=== PATIENT | female | born 1940 | race Caucasian/White ===

== ENCOUNTER → 2017-09-27 15:24 | Outpatient (CLI) | payer MEDICARE, SELFPAY ==
[2017-09-27 15:56] LABS: Basophils % 0.6 % (0.1-2.0); Eosinophils # 0.2 K/mm3 (0.0-0.4); Eosinophils % 2.9 % (0.1-12.0); Hematocrit 47.2 % (37.0-47.0); Hemoglobin 14.8 g/dL (12.2-16.2); Lymphocytes # 2.8 K/mm3 (0.7-4.5); Lymphocytes % 36.8 K/mm3 (10-50); Mean Corpuscular HGB Conc 31.3 g/dL (31.8-35.4); Mean Corpuscular Hemoglobin 28.4 pg (27.0-31.2); Mean Corpuscular Volume 90.7 fl (81-99); Mean Platelet Volume 7.7 fl (7.4-10.4); Monocytes # 0.4 K/mm3 (0.1-1.0); Monocytes % 5.4 % (1.7-9.3); Neutrophils # 4.2 K/mm3 (1.8-7.8); Neutrophils % 54.4 % (37.0-80.0); Platelet Count 217 K/mm3 (142-424); Red Cell Distribution Width 13.4 % (11.5-17.5); White Blood Count 7.7 K/mm3 (4.8-10.8)
[2017-09-27 16:30] LABS: Alanine Aminotransferase 59 U/L (12-78); Albumin Level 3.7 gm/dL (3.4-5.0); Albumin/Globulin Ratio 1.1 (1.1-1.8); Alkaline Phosphatase 78 U/L (46-116); Anion Gap 13.4 mEq/L (5-15); Aspartate Amino Transferase 45 U/L (15-37); Bilirubin,Total 0.3 mg/dL (0.2-1.0); Blood Urea Nitrogen 13 mg/dL (7-18); Calcium 9.9 mg/dL (8.5-10.1); Carbon Dioxide 31 mmol/L (21.0-32.0); Chloride 105 mmol/L (98-107); Creatinine,Serum 0.68 mg/dL (0.55-1.02); Estimated Glomerular Filt Rate 85 ml/min (>60); Free T4 (Free Thyroxine) 0.83 ng/dl (0.76-1.46); GFR (African American) 102 ML/MIN (>60); Globulin 3.4 gm/dl (1.3-3.2); Glucose 214 mg/dL (74-106); Potassium 4.4 mmoL/L (3.5-5.1); Sodium 145 mmol/L (136-145); Total Protein,Serum 7.1 gm/dL (6.4-8.2)
[2017-09-29 05:19] LABS: Thyroid Peroxidase Antibodies 8 IU/mL (0-34)
[2017-09-29 19:08] LABS: Triiodothyronine (T3) Free 2.2 pg/mL (2.0-4.4)
[2017-12-21 19:59] LABS: Thyroid Stimulating Immunoglob <0.10
== END ==
PROVIDERS: PCP Family Medicine; Visit Provider Otolaryngology
DX: R53.82 Chronic fatigue, unspecified (principal); J32.9 Chronic sinusitis, unspecified; J44.1 Chronic obstructive pulmonary disease with (acute) exacerbation; E07.9 Disorder of thyroid, unspecified; R06.02 Shortness of breath; J35.8 Other chronic diseases of tonsils and adenoids; E05.00 Thyrotoxicosis with diffuse goiter without thyrotoxic crisis or storm
CPT/HCPCS: 36415; 80053; 83520; 84439; 84481; 85025; 86376

== ENCOUNTER → 2017-10-10 12:30 | Outpatient (CLI) | payer MEDICARE, SELFPAY ==
--- NOTE | 2017-10-10 12:33 | XR_ITS ---
XR chest 2V HISTORY: Shortness of air with cough and COPD ITS.REASON: thyroid ORDERING PHYSICIAN: Grady Giraldo MD PATIENT AGE: 76 years COMPARISON: 12/17/1949 FINDINGS: The cardiomediastinal silhouette and pulmonary vascularity are within normal limits. No lobar consolidation or collapse. There are chronic changes in the left lower lobe. There is mild kyphosis of the thoracic spine with mild wedging of mid dorsal vertebral bodies. Not significant change. IMPRESSION: No change with no acute finding
--- NOTE | 2017-10-10 12:33 | US_ITS ---
US thyroid HISTORY: History of thyroid disease with prior thyroid treatments, weight gain, thyroid nodules ITS.REASON: thyroid ORDERING PHYSICIAN: Grady Giraldo MD PATIENT AGE: 76 years COMPARISON: None FINDINGS: Right lobe: Right lobe is 2.8 x 1.1 x 1.4 cm. 14 mm mixed nodule in the mid polar region with some increased echogenicity centrally and decreased echogenicity peripherally 8 mm hypoechoic nodule inferiorly Left lobe: 4.6 x 2.4 x 2.9 cm. 2.3x1.9 cm hypoechoic nodule mid aspect left lobe with mixed echogenicity. There may be some peripheral calcification. 1.5 cm isoechoic solid-appearing nodule lower pole Isthmus: Unremarkable IMPRESSION: Bilateral thyroid nodules. The largest nodule is in in the mid pole region of the left lobe at 2.3 x 1.9 cm with some peripheral calcification intermediate suspicion for malignancy.
== END ==
PROVIDERS: Family Provider Family Medicine; PCP Family Medicine; Visit Provider Otolaryngology
DX: J32.9 Chronic sinusitis, unspecified (principal); J44.1 Chronic obstructive pulmonary disease with (acute) exacerbation; R53.82 Chronic fatigue, unspecified; E07.9 Disorder of thyroid, unspecified; R06.02 Shortness of breath; J35.8 Other chronic diseases of tonsils and adenoids; E05.00 Thyrotoxicosis with diffuse goiter without thyrotoxic crisis or storm
CPT/HCPCS: 71046; 76536

== ENCOUNTER → 2017-10-15 13:56 | Outpatient (CLI) | payer MEDICARE, SELFPAY ==
[2017-10-15 14:31] LABS: Blood Urea Nitrogen 17 mg/dL (7-18); Creatinine,Serum 0.82 mg/dL (0.55-1.02); Estimated Glomerular Filt Rate 68 ml/min (>60); GFR (African American) 82 ML/MIN (>60)
== END ==
PROVIDERS: Visit Provider Otolaryngology
DX: E04.1 Nontoxic single thyroid nodule (principal); J39.8 Other specified diseases of upper respiratory tract
CPT/HCPCS: 36415; 82565; 84520

== ENCOUNTER → 2017-10-22 09:33 | Outpatient (CLI) | payer MEDICARE, SELFPAY ==
--- NOTE | 2017-10-22 09:35 | US_ITS ---
FNA w guidance, US organ site (thyroid), HISTORY: Abdominal left thyroid nodule ITS.REASON: thyroid nodule- dom left ORDERING PHYSICIAN: Grady Giraldo MD PATIENT AGE: 76 years COMPARISON: None Prebiopsy thyroid ultrasound: Prebiopsy exam performed to confirm presence of the nodule in the left lobe of the thyroid gland with partially calcified rim TECHNIQUE: Following obtaining informed consent, using aseptic technique and local anesthesia with buffered lidocaine, fine-needle aspiration was performed of the nodule of interest using sonographic guidance. 3 passes were made into the nodule with a 25-gauge needle. Injury into the nodule is somewhat difficult due to the calcified rim. Specimen was given to cytology. The patient tolerated the procedure well without evidence of immediate complications and left the ultrasound suite in stable condition. CYTOLOGY:Pending IMPRESSION: Uneventful ultrasound-guided fine-needle aspiration of the left thyroid nodule
== END ==
PROVIDERS: Family Provider Family Medicine; PCP Family Medicine; Visit Provider Otolaryngology
DX: E04.1 Nontoxic single thyroid nodule (principal); J39.8 Other specified diseases of upper respiratory tract
CPT/HCPCS: 10022; 76536; 88173; 88305

== ENCOUNTER → 2017-10-23 14:09 | Outpatient (CLI) | payer MEDICARE, SELFPAY ==
--- NOTE | 2017-10-23 14:13 | CT_ITS ---
CT soft tissue neck w con INDICATION: Left thyroid nodule with tracheal displacement ORDERING PHYSICIAN: Grady Giraldo MD PATIENT AGE: 76 years COMPARISON: Ultrasound of 10/10/2017 TECHNIQUE: Axial images are obtained with contrast. Sagittal and coronal reformatted images are reviewed as well. FINDINGS: The nasopharynx, oropharynx, and hypopharynx and larynx have an unremarkable appearance. Unremarkable appearing epiglottis. The salivary glands are unremarkable. There is a partially calcified nodule involving the mid to lower pole the left lobe of the thyroid gland measuring 2.9 x 1.6 x 2 cm cephalad to caudad, transverse, and AP respectively. The trachea is slightly deviated toward the right x 2-3 mm. Trachea is not compressed significantly. The esophagus is midline. No adenopathy evident within the neck. There is some calcification in the right lobe of the thyroid gland inferiorly and posteriorly. Upper thoracic images show mild centrilobular emphysematous change. There is a partially calcified region within the proximal aspect of the left internal carotid. While this may represent a looping vessel with calcific plaque, one cannot exclude the possibility of an aneurysm. This measures approximately 9 mm. IMPRESSION: 1. 2.9 x 2 cm partially calcified left thyroid nodule along the mid lower pole of the left lobe of the thyroid gland. 2. Mild tracheal deviation to the right of 2 to 3 mm in esophagus. 3. 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 CT angiogram of the neck may be of further value if clinically warranted
== END ==
PROVIDERS: Family Provider Family Medicine; PCP Family Medicine; Visit Provider Otolaryngology
DX: E04.1 Nontoxic single thyroid nodule (principal); J39.8 Other specified diseases of upper respiratory tract
CPT/HCPCS: 70491; Q9967

== ENCOUNTER → 2017-10-30 11:32 | Outpatient (CLI) | payer MEDICARE, SELFPAY ==
[2017-10-30 11:40] LABS: Microscopic, Urine URINE MICROSCOPIC (MICROSCOPIC)
[2017-10-30 12:04] LABS: Appearance,Urine CLEAR (Clear); Bilirubin,Urine Negative (Negative); Blood, Urine Negative (Negative); Color,Urine YELLOW (Yellow); Glucose,Urine (UA) Negative (Negative); Ketones,Urine Negative (Negative); Leukocyte Esterase,Urine TRACE (Negative); Nitrate,Urine POSITIVE (Negative); PH,Urine 5.5 (5.0-8.5); Protein,Urine Negative (Negative); Specific Gravity, Urine 1.025 (1.005-1.030); Urobilinogen,Urine 0.2 EU/dl (0.2)
[2017-10-30 12:16] LABS: Bacteria,Urine 1+ /lpf; RBC,Urine Occasional #/hpf (0-3)
[2017-10-30 12:21] LABS: Activated Partial Thrombo Time 24.5 seconds (23.6-34.0); Alanine Aminotransferase 63 U/L (12-78); Albumin Level 3.5 gm/dL (3.4-5.0); Alkaline Phosphatase 89 U/L (46-116); Anion Gap 13.4 mEq/L (5-15); Aspartate Amino Transferase 32 U/L (15-37); Bilirubin,Total 0.5 mg/dL (0.2-1.0); Blood Urea Nitrogen 13 mg/dL (7-18); Calcium 9.1 mg/dL (8.5-10.1); Carbon Dioxide 29 mmol/L (21.0-32.0); Chloride 102 mmol/L (98-107); Estimated Glomerular Filt Rate 70 ml/min (>60); GFR (African American) 85 ML/MIN (>60); Globulin 3.6 gm/dl (1.3-3.2); Glucose 255 mg/dL (74-106); INR 1.05 (0.9-1.1); Potassium 4.4 mmoL/L (3.5-5.1); Prothrombin Time 11.4 seconds (9.4-11.8); Sodium 140 mmol/L (136-145); Total Protein,Serum 7.1 gm/dL (6.4-8.2)
[2017-10-30 13:06] LABS: Basophils % 0.4 % (0.1-2.0); Eosinophils # 0.2 K/mm3 (0.0-0.4); Eosinophils % 3.5 % (0.1-12.0); Hematocrit 47.8 % (37.0-47.0); Hemoglobin 15.1 g/dL (12.2-16.2); Lymphocytes # 2.2 K/mm3 (0.7-4.5); Lymphocytes % 34.5 K/mm3 (10-50); Mean Corpuscular HGB Conc 31.7 g/dL (31.8-35.4); Mean Corpuscular Hemoglobin 29.5 pg (27.0-31.2); Mean Corpuscular Volume 93.3 fl (81-99); Mean Platelet Volume 8.9 fl (7.4-10.4); Monocytes # 0.4 K/mm3 (0.1-1.0); Monocytes % 6.2 % (1.7-9.3); Neutrophils # 3.5 K/mm3 (1.8-7.8); Neutrophils % 55.2 % (37.0-80.0); Platelet Count 218 K/mm3 (142-424); Red Blood Count 5.12 M/mm3 (4.20-5.40); Red Cell Distribution Width 13.3 % (11.5-17.5); White Blood Count 6.3 K/mm3 (4.8-10.8)
== END ==
PROVIDERS: Visit Provider Otolaryngology
DX: Z01.818 Encounter for other preprocedural examination (principal); E04.1 Nontoxic single thyroid nodule; E11.9 Type 2 diabetes mellitus without complications; J44.9 Chronic obstructive pulmonary disease, unspecified
CPT/HCPCS: 36415; 80053; 81001; 85025; 85610; 85730; 93005

== ENCOUNTER → 2017-12-10 12:14 | Outpatient (CLI) | payer MEDICARE, SELFPAY ==
[2017-12-10 13:12] LABS: Free T4 (Free Thyroxine) 1.07 ng/dl (0.76-1.46)
[2017-12-14 12:34] LABS: Calcitonin <2.0 pg/mL (0.0-5.0)
== END ==
PROVIDERS: Visit Provider Otolaryngology
DX: E03.9 Hypothyroidism, unspecified (principal)
CPT/HCPCS: 36415; 82308; 84439; 84443

== ENCOUNTER → 2018-03-11 14:21 | Outpatient (CLI) | payer MEDICARE, SELFPAY ==
[2018-03-11 14:51] LABS: Free T4 (Free Thyroxine) 1.25 ng/dl (0.76-1.46); Thyroid Stimulating Hormone 1.73 uIU/ml (0.358-3.740)
== END ==
PROVIDERS: Family Provider Family Medicine; PCP Family Medicine; Visit Provider Otolaryngology
DX: E07.9 Disorder of thyroid, unspecified (principal)
CPT/HCPCS: 36415; 84439; 84443

== ENCOUNTER → 2018-05-27 15:01 | Outpatient (POV) | payer MEDICARE, SELFPAY | PROVIDERS: Visit Provider Nurse Practitioner Acute Care | DX: Z00.00 Encounter for general adult medical examination without abnormal findings (principal) ==

== ENCOUNTER → 2018-09-02 10:27 | Outpatient (CLI) | payer MEDICARE, SELFPAY ==
[2018-09-02 12:00] LABS: Free T4 (Free Thyroxine) 1.18 ng/dl (0.76-1.46); Thyroid Stimulating Hormone 2.49 uIU/ml (0.358-3.740)
== END ==
PROVIDERS: Visit Provider Otolaryngology
DX: E03.9 Hypothyroidism, unspecified (principal)
CPT/HCPCS: 36415; 84439; 84443

== ENCOUNTER → 2019-09-01 13:55 | Outpatient (CLI) | payer MEDICARE, SELFPAY ==
[2019-09-01 15:08] LABS: Calcium 9.7 mg/dL (8.5-10.1); Free T4 (Free Thyroxine) 1.44 ng/dl (0.76-1.46); Thyroid Stimulating Hormone 2.19 uIU/ml (0.358-3.740)
[2019-09-03 07:40] LABS: Thyroid Peroxidase Antibodies <6 IU/mL (0-34)
== END ==
PROVIDERS: Visit Provider Otolaryngology
DX: E07.9 Disorder of thyroid, unspecified (principal); Z90.09 Acquired absence of other part of head and neck
CPT/HCPCS: 36415; 82310; 84439; 84443; 86376

== ENCOUNTER → 2020-03-01 12:19 | Outpatient (CLI) | payer MEDICARE, SELFPAY ==
[2020-03-01 13:59] LABS: Free T4 (Free Thyroxine) 1.25 ng/dl (0.78-2.19)
[2020-03-01 14:14] LABS: Thyroid Stimulating Hormone 0.52 uIU/mL (0.465-4.68)
[2020-03-02 05:27] LABS: Thyroid Peroxidase Antibodies <9 IU/mL (0-34)
[2020-03-02 06:38] LABS: Triiodothyronine (T3) Free 2.3 pg/mL (2.0-4.4)
[2020-03-03 11:16] LABS: Thyroid Stimulating Immunoglob <0.10 IU/L (0.00-0.55)
== END ==
PROVIDERS: Visit Provider Otolaryngology
DX: E07.9 Disorder of thyroid, unspecified (principal)
CPT/HCPCS: 36415; 84439; 84443; 84445; 84481; 86376

== ENCOUNTER → 2020-09-09 13:59 | Outpatient (CLI) | payer MEDICARE, SELFPAY ==
--- NOTE | 2020-09-09 14:00 | US_ITS ---
PROCEDURE: US THYROID CLINICAL INDICATION: hx thyroid neoplasm F/u Hx of lt lobe rem COMPARISON: US THY US thyroid from 10/10/2017 FINDINGS: Right lobe: 1.4cm x 3.1cm x 0.9cm Left lobe: Prior left thyroidectomy Isthmus: Unremarkable Additional findings: No change in the complex mostly hyperechoic nodule in the mid polar region on the right measuring 10 x 9 mm with some coarse calcification. IMPRESSION: Prior left thyroidectomy. Overall no change in the complex right thyroid nodule stable since 10/10/2017 Dictated by: Juvencio Montalvo MD 09/10/2020 08:57 Juvencio Montalvo MD in [place] 09/10/2020 08:58
== END ==
PROVIDERS: PCP Family Medicine; Visit Provider Otolaryngology
DX: E03.9 Hypothyroidism, unspecified (principal)
CPT/HCPCS: 76536

== ENCOUNTER → 2020-09-14 08:44 | Outpatient (CLI) | payer MEDICARE, SELFPAY ==
[2020-09-15 15:43] LABS: Thyroid Peroxidase Antibodies <9 IU/mL (0-34)
[2020-09-16 08:49] LABS: Thyroid Stimulating Immunoglob <0.10 IU/L (0.00-0.55)
== END ==
PROVIDERS: PCP Family Medicine; Visit Provider Otolaryngology
DX: E07.9 Disorder of thyroid, unspecified (principal)
CPT/HCPCS: 36415; 84439; 84443; 84445; 86376

== ENCOUNTER → 2020-12-01 18:25 | Outpatient (CLI) | payer MEDICARE, SELFPAY ==
[2020-12-01 19:48] LABS: Thyroid Stimulating Hormone 1.32 uIU/mL (0.465-4.68)
== END ==
PROVIDERS: Visit Provider Otolaryngology
DX: E03.9 Hypothyroidism, unspecified (principal)
CPT/HCPCS: 36415; 84439; 84443

== ENCOUNTER → 2021-03-03 13:02 | Outpatient (CLI) | payer MEDICARE, SELFPAY ==
--- NOTE | 2021-03-03 13:20 | US_ITS ---
PROCEDURE: US THYROID CLINICAL INDICATION: goiter COMPARISON: US THY US thyroid from 10/10/2017 US US THYROID from 09/09/2020 FINDINGS: Status post left-sided thyroidectomy. The isthmus has an unremarkable appearance at 2 mm. In the upper pole on the right there is a mixed 5 mm nodule unchanged. In the mid polar region there is a 10 x 7 mm slightly hyperechoic nodule with central calcification not significantly changed. There is a prominent peripheral vessel around this nodule. There has been a prior left thyroidectomy. IMPRESSION: No change right thyroid nodules Dictated by: Juvencio Montalvo MD 03/03/2021 16:08 Juvencio Montalvo MD in [place] 03/03/2021 16:08
== END ==
PROVIDERS: PCP Family Medicine; Visit Provider Otolaryngology
DX: E03.9 Hypothyroidism, unspecified (principal)
CPT/HCPCS: 76536

== ENCOUNTER → 2021-03-15 12:19 | Outpatient (CLI) | payer MEDICARE, SELFPAY ==
[2021-03-15 13:30] LABS: Free T4 (Free Thyroxine) 1.08 ng/dl (0.78-2.19)
[2021-03-15 17:02] LABS: Thyroid Stimulating Hormone 7.78 uIU/mL (0.465-4.68)
== END ==
PROVIDERS: Visit Provider Otolaryngology
DX: E03.9 Hypothyroidism, unspecified (principal)
CPT/HCPCS: 84439; 84443

== ENCOUNTER → 2021-04-15 12:36 | Outpatient (CLI) | payer MEDICARE, SELFPAY ==
--- NOTE | 2021-04-15 12:40 | XR_ITS ---
PROCEDURE: XR KNEE RT 3V CLINICAL INDICATION: PAIN IN RT LEG COMPARISON: CR KNEE3L KNEE-3 VIEWS-LT from 05/31/2015 FINDINGS: No fracture or dislocation. No lytic or blastic change. There is normal mineralization. Mild osteoarthritic changes involve all 3 compartments. No acute fracture or dislocation. No lytic or blastic change. Other findings:None. IMPRESSION: Mild osteoarthritis Dictated by: Juvencio Montalvo MD 04/15/2021 13:10 Juvencio Montalvo MD in [place] 04/15/2021 13:10
--- NOTE | 2021-04-15 12:40 | XR_ITS ---
PROCEDURE: XR HIP RT 2-3V W/PELVIS CLINICAL INDICATION: PAIN IN RT LEG COMPARISON: CR HIP2L HIP-2 VIEWS-LT from 05/31/2015 FINDINGS: No acute fracture or dislocation. There are mild osteoarthritic changes of the right hip. No lytic or blastic change. AP view of the pelvis shows multiple surgical coils. A metallic coned shaped density is present in the left pelvic region measuring approximately 2 cm. This could be due to something upon or within the patient. There is mild osteitis pubis and minimal osteoarthritic change of the left hip is well as degenerative changes in the lumbar spine and SI joints IMPRESSION: Osteoarthritis of both hips right slightly greater than left. Mild degenerative/osteoarthritic changes of the SI joints and degenerative changes of the lumbar spine Dictated by: Juvencio Montalvo MD 04/15/2021 13:09 Juvencio Montalvo MD in [place] 04/15/2021 13:09
== END ==
PROVIDERS: PCP Family Medicine; Visit Provider Family Medicine
DX: M79.604 Pain in right leg (principal); M25.551 Pain in right hip; M25.561 Pain in right knee
CPT/HCPCS: 73502; 73562

== ENCOUNTER → 2021-06-06 16:55 | Outpatient (CLI) | payer MEDICARE, SELFPAY | PROVIDERS: Visit Provider Surgery | DX: Z01.812 Encounter for preprocedural laboratory examination (principal); Z11.52 Encounter for screening for COVID-19; Z12.11 Encounter for screening for malignant neoplasm of colon | CPT/HCPCS: C9803; U0003; U0005 ==

== ENCOUNTER 2021-06-08 09:12 | Day surgery (SDC) | payer MEDICARE, SELFPAY ==
[2021-06-06 10:00] VITALS: BMI 42.0
--- NOTE | 2021-06-08 09:34 | HMH.ANESCL ---
[facility] Anesthesia Checklist - Patient Identification Patient Identification: Arm Band - Structural Data Admitted From: Home Planned Operative Procedure/s: Colonoscopy Consent for Planned Operative Procedure(s) Verified: Yes - NPO Status Verified Time NPO: 00:00 - Additional verifications Anesthesia Reactions: No - Airway Assessment C-Spine Mobility Assessed: Yes TMJ Mobility Assessed: Yes Dentition: Poor Dentition - Neurological Assessment Level of Consciousness: Awake Hx Seizures: No Numbness or tingling in extremities: No - Anesthesia Plan Anesthesia Risk discussed: Yes Anesthesia Plan: Verified ASA Class: III Anesthesia Type: MAC [facility] History I have reviewed the patient's past medical history: Yes Medical History: Reports:: Cancer, Chronic Obstructive Pulmonary Disease (COPD), Diabetes Mellitus Type 2, Hypertension Denies:: Diabetes Mellitus Type 1, Internal Pacemaker, Lung Disease, MRSA, Seizures *Have you ever received a pneumonia vaccine?: Yes *Have you received a flu vaccine this season?: Yes Other Medical History: Reports: Hypothyroidism, Other Anesthesia experience/problems:: None Laterality Cases: Bilateral: Tonsillectomy, Total Hip Replacement Other Surgeries: Yes: Appendectomy, Hernia Repair, Thyroidectomy. No: Pacemaker Amputation: No Fractures: No - *Social History Last grade of school completed: Advanced degree Smoking Status: Former smoker Alcohol Intake: never Substance Use Type: denies use *Occupational Status:: disabled Housing: house *Travel in the last 8 weeks: None Family Hx:: Thyroid Disorder
[2021-06-08 10:13] VITALS: BP 129/63; PULSE 79; RESP 18; TEMP 36.5; O2SAT 96
[2021-06-08 10:34] VITALS: O2SAT 96
[2021-06-08 10:34] LABS: POC Glucose,Bedside 196 (70-110)
--- NOTE | 2021-06-08 11:27 | HMH.SCOPE ---
- Procedure: Date: 06/08/21 Patient Date of :: 1940 Procedure Performed:: Total colonoscopy to terminal ileum with polypectomy by biopsy forceps Indications:: 80-year-old female who has undergone several colonoscopies in the past. Most recent colonoscopy was on 06/22/2015 at which time she had a couple of tubular adenomas removed. 5-year follow-up was recommended. Performing Provider:: Kei Medrano MD Referring Provider:: Zak Beatty MD Sedation:: MAC sedation Procedure:: Patient was taken to endoscopy procedure room. She was positioned in lateral decubitus position. Adequate intravenous sedation was achieved with anesthesia titration of propofol. Variable stiffness Olympus colonoscope was inserted via the anus. It was advanced to the cecum with some difficulty due to significant floppiness and redundancy of the colon. Ultimately the ileocecal valve and appendiceal orifice were clearly identified. Colonoscope was advanced into the terminal ileum which appeared grossly normal. It was slowly withdrawn through the colon with careful surveillance. Irrigation and suctioning was performed as needed to allow for adequate visualization as there was some particulate liquid stool within the colon. She had distal sigmoid diverticulosis. In the sigmoid colon there was a tiny diminutive polyp removed with cold biopsy forceps. Rectosigmoid revealed a tiny diminutive polyp removed with cold biopsy forceps. In the rectal region there were several hyperplastic appearing polyps removed with cold biopsy forceps. Retroflexion revealed minor prolapsing nonbleeding internal hemorrhoids. Colonoscope was withdrawn. Findings:: Sigmoid diverticulosis Diminutive polyps as noted above Recommendations:: Follow-up colonoscopy pending pathology results. If no adenomatous component likely would not pursue follow-up colonoscopy. If adenomatous, may need repeat colonoscopy 5 years. Complications:: None immediately apparent Estimated blood obtained (mL): 3
[2021-06-08 11:29] VITALS: BP 138/67; PULSE 74; RESP 16; TEMP 36.4; O2SAT 95
[2021-06-08 11:40] VITALS: BP 105/55; PULSE 91; RESP 18; TEMP 36.4; O2SAT 94
[2021-06-08 11:50] VITALS: BP 115/61; PULSE 72; RESP 18; TEMP 36.3; O2SAT 96
== END 2021-06-08 12:10 | disposition home or self-care (01) ==
LOC: OUTP 09:14
PROVIDERS: PCP Family Medicine; Visit Provider Surgery
PROC: 0DJD8ZZ Inspection of Lower Intestinal Tract, Via Natural or Artificial Opening Endoscopic (ICD-10-PCS; principal; 2021-06-08 10:30)
DX: Z12.11 Encounter for screening for malignant neoplasm of colon (principal); K62.1 Rectal polyp; K57.30 Diverticulosis of large intestine without perforation or abscess without bleeding; K63.5 Polyp of colon; Z86.010 Personal history of colon polyps; Z85.9 Personal history of malignant neoplasm, unspecified; J44.9 Chronic obstructive pulmonary disease, unspecified; E11.9 Type 2 diabetes mellitus without complications; I10 Essential (primary) hypertension; E03.9 Hypothyroidism, unspecified; Z79.84 Long term (current) use of oral hypoglycemic drugs; Z79.899 Other long term (current) drug therapy
CPT/HCPCS: 45380; 82962; 88305; J2704

== ENCOUNTER → 2021-06-30 12:48 | Outpatient (CLI) | payer MEDICARE, SELFPAY ==
--- NOTE | 2021-06-30 12:49 | MR_ITS ---
PROCEDURE: MR LUMBAR SPINE WO CON CLINICAL INDICATION: Radiculopathy, femoral nerve injury Right leg pain with intermittent low back pain COMPARISON: No exams were available for comparison TECHNIQUE: Standard multiplanar multiecho sequences are performed without contrast. 3-D MIP and myelographic images are also rendered and reviewed FINDINGS: There is mild lumbar scoliosis convex left. Spinal cord ends at the L1 level. T11 and T12 shows mild degenerative disc disease. L1-L2: Unremarkable. L2-L3: Degenerative disc disease with circumferential bulging disc and mild facet and ligamentum hypertrophy with mild right lateral recess narrowing and mild bilateral foraminal narrowing. L3-L4: Circumferential bulging disc with facet and ligamentum hypertrophy with right lateral recess narrowing and mild right foraminal narrowing. L4-5: Concentric bulging disc. 3 mm anterolisthesis of L4. Facet and ligamentum hypertrophy. Mild right lateral recess and mild bilateral foraminal narrowing. L5-S1: Facet and ligamentum hypertrophy. No extruded herniated disc, fracture, or bony canal stenosis. IMPRESSION: Multilevel lumbar spondylosis. Please see above for detailed description at each level. No extruded herniated disc. Dictated by: Juvencio Montalvo MD 07/02/2021 08:32 Juvencio Montalvo MD in [place] 07/02/2021 08:32
== END ==
PROVIDERS: PCP Family Medicine; Visit Provider Specialist
DX: M54.9 Dorsalgia, unspecified (principal); M79.604 Pain in right leg
CPT/HCPCS: 72148; 76376

== ENCOUNTER → 2021-08-15 10:51 | Outpatient (POV) | payer MEDICARE, SELFPAY ==
[2021-08-15 11:13] VITALS: BP 168/69; PULSE 91; RESP 18; O2SAT 95; BMI 40.2
--- NOTE | 2021-08-15 11:32 | HMH.PMCON ---
Assessment and Plan (1) Sacroiliitis Status: Acute Category: Medical Code(s): M46.1 - Sacroiliitis, not elsewhere classified - Assessment and plan all Dx Assessment and Plan for all problems:: Patient is tried and failed conservative therapy such as oral medication and physical therapy for greater than 6 weeks. Patient has positive raphael, joel, compression and distraction. We will schedule the patient for a right SI injection. Patient is currently not on any blood thinners. Risk and benefits have been discussed with the patient. Patient would like to proceed with this procedure. Patient has been instructed to contact the clinic with any concerns before the next appointment. This note was dictated using voice recognition software and make contain errors or omissions. HPI - Data of Consult Patient: new to practice Consult date: 08/15/21 Requesting Physician: Dr. Leslie Starr - Consult Narrative Reason for consult: right hip pain History of present illness: Ms. Brooks is a 80 year old female who is here today as a new patient. Patient is referred by Dr. Starr for right hip pain. Patient says that she fell in January 2021 that could have contributed to this right hip pain. She did not seek help until late March because she was trying to see if the pain improves with exercise and movement. After seeing Dr. Starr, she recommended the patient to go to physical therapy. However, she fell two more times on her bottom after that. They did an imaging of her back to see if there's any fractures or reason that could be causing her to fall. Patient's MRI shows multilevel lumbar spondylosis. Today, patient describes the pain that starts in her right low back that stops to her right knee. It's mostly on her groin and right low back. She denies any numbness and paresthesia that goes to her foot. Patient denies any loss of bladder and bowel functions. Dr. Starr thinks that she has some injury to her right femoral nerve. Patient says that she was started on cymbalta but could not tolerate it. She is not on any controlled medications today. Her Leon is [phone]. CC: Sharita Oliveira APRN [facility] History I have reviewed the patient's past medical history: Yes Medical History: Reports:: Cancer, Chronic Obstructive Pulmonary Disease (COPD), Diabetes Mellitus Type 2, Hypertension, Lung Disease Denies:: Diabetes Mellitus Type 1, Internal Pacemaker, MRSA, Seizures *Have you ever received a pneumonia vaccine?: Yes *Have you received a flu vaccine this season?: No Other Medical History: Reports: Hypothyroidism, Other Laterality Cases: Bilateral: Tonsillectomy, Total Hip Replacement Other Surgeries: Yes: Appendectomy, Colonoscopy, Hernia Repair, Thyroidectomy. No: Pacemaker Amputation: No Fractures: No - *Social History Smoking Status: Former smoker Alcohol Intake: never Substance Use Type: denies use *Occupational Status:: unemployed Housing: other Household Members: none *Travel in the last 8 weeks: None Family Hx:: Unable to obtain Review of Systems - Review of Systems General: No recent weight changes, no fever, no sleep disturbances Respiratory: No cough, no shortness of air, no recurring pulmonary infections Cardiovascular/peripheral vascular: No chest pain, no palpitations, no edema, no shortness of breath Gastrointestinal: No new onset incontinence, normal bowel movements reported Genitourinary: No new onset incontinence Musculoskeletal: Right hip pain Psychiatric: [Normal mood/affect] Neurological: [Denies weakness in extremities], [denies balance issues] Meds Home Medications Medication Instructions Recorded Confirmed Type Dapagliflozin Propanediol [Farxiga] 10 mg PO DAILY 06/25/18 07/28/21 History lisinopril 10 mg tablet 10 mg PO DAILY 09/01/19 07/28/21 History metformin 500 mg tablet,extended 500 mg PO BID 09/01/19 07/28/21 History release 24 hr Cholecalciferol (Vitamin D3) 250 mcg PO ALMA
== END ==
PROVIDERS: Visit Provider Family Medicine
DX: M46.1 Sacroiliitis, not elsewhere classified (principal)
CPT/HCPCS: 99202; G0463

== ENCOUNTER 2021-09-02 12:43 | Day surgery (SDC) | payer MEDICARE, SELFPAY ==
[2021-09-02 13:03] VITALS: BP 133/71; PULSE 72; RESP 18; TEMP 36.6; O2SAT 94; BMI 40.2
[2021-09-02 13:25] VITALS: BP 161/79; PULSE 75; RESP 18; O2SAT 94
[2021-09-02 13:27] VITALS: PULSE 74; RESP 18; O2SAT 97
--- NOTE | 2021-09-02 13:30 | HMH.PMPROC ---
- Procedure Date: 09/02/21 Time: 13:30 Anesthesiologist:: Nilsa Bains MD Complications:: None Pre-procedure Diagnosis:: Right sacroiliitis, right-sided low back pain, right-sided hip pain Post-procedure Diagnosis:: Same Indications for Procedure:: Patient is a very pleasant 80-year-old white female who presents today with chronic low back pain and right-sided hip pain related to the above diagnosis. She has tried and failed conservative treatment including oral pain medications and home stretching program for greater than 6 weeks. Patient states that she has fallen a few times which has contributed to worsening pain. The plan for today is for the patient to undergo a right-sided SI joint injection under fluoroscopy #1. Procedure Details:: Right SI joint injection under fluoroscopy Informed consent was obtained and the risks and benefits of the procedure was going to the patient. Patient was taken to the procedure room. Patient was placed prone on the procedure table. The right hip was prepped using ChloraPrep. The skin and subcutaneous tissues were anesthetized using lidocaine. I placed a 22-gauge spinal needle into the inferior aspect of the right SI joint. Needle placement was confirmed with dye. After this we injected 5 mL bupivacaine 0.25% and Depo-Medrol 40 mg into the right SI joint. The patient tolerated the procedure well with no complication. Plan and Disposition:: We will follow-up with this patient in 2 weeks. Will reevaluate pain symptoms at that time.
[2021-09-02 13:40] VITALS: BP 140/72; PULSE 67; RESP 20; O2SAT 94
== END 2021-09-02 13:40 | disposition home or self-care (01) ==
LOC: SC.PAINP 12:44
PROVIDERS: PCP Family Medicine; Visit Provider Anesthesiology Pain Medicine
DX: M46.1 Sacroiliitis, not elsewhere classified (principal); M54.50 Low back pain, unspecified; I10 Essential (primary) hypertension; J44.9 Chronic obstructive pulmonary disease, unspecified; E11.9 Type 2 diabetes mellitus without complications; Z87.891 Personal history of nicotine dependence; M19.90 Unspecified osteoarthritis, unspecified site; E03.9 Hypothyroidism, unspecified; Z90.49 Acquired absence of other specified parts of digestive tract
CPT/HCPCS: 27096; G0260; J1040; Q9966

== ENCOUNTER → 2021-09-13 20:21 | Outpatient (CLI) | payer MEDICARE, SELFPAY | PROVIDERS: PCP Family Medicine; Visit Provider Specialist | DX: G47.33 Obstructive sleep apnea (adult) (pediatric) (principal) | CPT/HCPCS: 95810 ==

== ENCOUNTER → 2021-09-27 10:37 | Outpatient (POV) | payer MEDICARE, SELFPAY ==
[2021-09-27 10:55] VITALS: BP 143/76; PULSE 77; RESP 18; O2SAT 99; BMI 39.6
--- NOTE | 2021-09-27 11:03 | HMH.PAINSOAP ---
[facility] Pain Management SOAP Note Subjective:: Patient is a 80-year-old female who is presenting today for follow-up after a right SI joint injection. She underwent the injection on 09/02/2021. She got 3 days of significant relief at about 70%. Patient's pain has returned. She does use a walker for ambulation. She reports to have had a fall in January 2021. Since then she has had significant pain. She has pain in her right low back area into the right buttock, and right anterior thigh as well as right knee. She says that the injection gave her significant relief, however, she is concerned that her pain may be coming from the hip as well. She does have hip pain with standing and walking. She says that she was told in the past she may need to undergo a right hip replacement. She has not had any significant imaging. She rates her pain a 5 out of 10. Review of Systems General: No recent weight changes, no fever, no sleep disturbances Respiratory: No cough, no shortness of air, no recurring pulmonary infections Cardiovascular/peripheral vascular: No chest pain, no palpitations, no edema, no shortness of breath Gastrointestinal: No new onset incontinence, normal bowel movements reported Genitourinary: No new onset incontinence Musculoskeletal: Right low back pain, right buttock pain, right hip pain, right anterior thigh pain, right knee pain Psychiatric: [Normal mood/affect] Neurological: [Denies weakness in extremities], [denies balance issues] Objective:: Physical exam General: Alert and oriented x3, no acute distress, pleasant and cooperative Lungs: Respirations even and unlabored, symmetrical chest expansion Eyes: PERRL Musculoskeletal: Flexion and extension of right lumbar [spine] somewhat guarded secondary to pain, [antalgic gait noted], positive Girma's test, positive distraction test, positive compression test, positive Aurora's test Neurological: Speech clear, no gross sensory deficit Assessment:: Sacroiliitis right, right hip pain Plan:: We will schedule patient for repeat right SI joint injection. She got 70 to 80% relief for approximately 3 days following the injection. We will also order an MRI of the patient's right hip. She did have a fall and says she has had pain to the right hip since the fall. We will follow up with her after the MRI and after her SI injection. Possible side effects of corticosteroids have been discussed with the patient. Risks and benefits of the procedure have been explained to the patient. Patient would like to proceed with the procedure. Patient has been instructed to contact the clinic with any concerns before the next appointment. Dr. Tidwell has reviewed this note and agrees with this plan of care. This note was dictated using voice recognition software and make contain errors or omissions. [facility] History I have reviewed the patient's past medical history: Yes Medical History: Reports:: Chronic Obstructive Pulmonary Disease (COPD), Diabetes Mellitus Type 2, Hypertension, Lung Disease Denies:: Cancer, Diabetes Mellitus Type 1, Internal Pacemaker, MRSA, Seizures *Have you ever received a pneumonia vaccine?: Yes *Have you received a flu vaccine this season?: No Other Medical History: Reports: Arthritis, Hypothyroidism, Other Laterality Cases: Bilateral: Tonsillectomy, Total Hip Replacement Other Surgeries: Yes: Appendectomy, Colonoscopy, Hernia Repair, Thyroidectomy. No: Pacemaker Amputation: No Fractures: No - *Social History Smoking Status: Former smoker Alcohol Intake: never Substance Use Type: denies use *Occupational Status:: retired Housing: other Household Members: none *Travel in the last 8 weeks: None Family Hx:: Unable to obtain
== END ==
PROVIDERS: Visit Provider Clinical Nurse Specialist Family Health
DX: M46.1 Sacroiliitis, not elsewhere classified (principal); M25.551 Pain in right hip
CPT/HCPCS: 99212; G0463

== ENCOUNTER → 2021-09-29 11:12 | Outpatient (CLI) | payer MEDICARE, SELFPAY ==
--- NOTE | 2021-09-29 11:20 | XR_ITS ---
FINAL REPORT CLINICAL HISTORY: COPD, no chest complaints COMPARISON: October 10, 2017 FINDINGS: Two views of the chest were obtained. The heart size and pulmonary vascularity are within normal limits. The mediastinum is normal. The lungs are hyperinflated consistent with COPD. There is mild scarring or atelectasis in the lung bases. There is no pneumothorax. The bony thorax is intact. IMPRESSION: Mild bibasilar scarring or atelectasis. Reviewed, Interpreted and Dictated by Kei Zaidi III, MD Transcribed by Franklin Mccarty Authenticated by Kei Zaidi III, MD on 09/29/2021 12:36:58 PM [facility]
== END ==
PROVIDERS: PCP Family Medicine; Visit Provider Specialist
DX: J44.9 Chronic obstructive pulmonary disease, unspecified (principal)
CPT/HCPCS: 71046

== ENCOUNTER → 2021-10-03 14:24 | Outpatient (CLI) | payer MEDICARE, SELFPAY ==
--- NOTE | 2021-10-03 14:27 | MR_ITS ---
FINAL REPORT CLINICAL HISTORY: RT HIP PAIN.RT HIP PAIN XMONTHS. NO RECENT INJURY OR TRAUMA. PAIN WHEN GETTING UP OR DOWN. NO PRIOR. FINDINGS: Multiplanar MR imaging of the right hip was performed without contrast. There is no evidence of fracture or dislocation. There is moderate degenerative change of the right hip. There are subchondral cysts in the right superior acetabulum with adjacent bone marrow edema. There is no evidence of avascular necrosis. No labral tear is identified. No significant joint effusion is seen. There is a small partial tear at the insertion of the right gluteus medius. There is mild edema or mild muscle injury of the right adductor musculature. No soft tissue mass or cyst is identified. IMPRESSION: Moderate right hip degenerative change. Small partial tear at the insertion of the right gluteus medius. Mild edema or mild muscle injury of the right adductor musculature. Reviewed, Interpreted and Dictated by Kei Zaidi III, MD Transcribed by Franklin Mccarty Authenticated by Kei Zaidi III, MD on 10/03/2021 04:36:26 PM [facility]
== END ==
PROVIDERS: PCP Family Medicine; Visit Provider Clinical Nurse Specialist Family Health
DX: M25.551 Pain in right hip (principal)
CPT/HCPCS: 73721

== ENCOUNTER 2021-10-14 14:07 | Day surgery (SDC) | payer MEDICARE, SELFPAY ==
[2021-10-14 14:13] VITALS: BP 114/80; PULSE 76; RESP 18; O2SAT 95
[2021-10-14 14:22] VITALS: BP 148/76; PULSE 77; RESP 18; TEMP 36.7; O2SAT 95; BMI 39.6
[2021-10-14 14:39] VITALS: BP 116/80; PULSE 76; RESP 20; O2SAT 95
--- NOTE | 2021-10-14 14:57 | HMH.PMPROC ---
- Procedure Date: 10/14/21 Time: 14:58 Anesthesiologist:: Nilsa Bains MD Complications:: None Pre-procedure Diagnosis:: Right-sided sacroiliitis, right-sided hip pain, chronic low back pain Post-procedure Diagnosis:: Same Indications for Procedure:: Patient is a very pleasant 80-year-old white female who presents today with chronic low back pain and right-sided hip pain related to the above diagnosis. She has tried and failed conservative treatment including oral pain medications and home stretching program for greater than 6 weeks. She has previously undergone a right-sided SI joint injection under fluoroscopy notes 70 to 80% pain relief for unfortunately only 3 days after the injection. She states that she did have a fall and she has been having right hip pain since the fall. We also ordered x-rays of her right hip for further evaluation of her right hip pain after she sustained a fall and imaging demonstrated moderate right hip degenerative changes with a small partial tear at the insertion of the right gluteus medius muscle. There is also mild edema and or mild muscle injury to the right abductor muscle. The plan for today is for the patient to undergo repeat right sided SI joint injection under fluoroscopy. Procedure Details:: Right SI joint injection under fluoroscopy Informed consent was obtained and the risks and benefits of the procedure was going to the patient. Patient was taken to the procedure room. Patient was placed prone on the procedure table. The right hip was prepped using ChloraPrep. The skin and subcutaneous tissues were anesthetized using lidocaine. I placed a 22-gauge spinal needle into the inferior aspect of the right SI joint. Needle placement was confirmed with dye. After this we injected 5 mL bupivacaine 0.25% and Depo-Medrol 40 mg into the right SI joint. The patient tolerated the procedure well with no complication. Plan and Disposition:: I discussed x-ray findings of her right hip with the patient. I also discussed with the patient we can perform an intra-articular right hip injection in the future should she continue to experience right-sided hip/groin pain. We will follow-up with this patient in 2 weeks and reevaluate her chronic pain symptoms.
[2021-10-14 15:00] VITALS: BP 136/94; PULSE 72; RESP 20; O2SAT 94
== END 2021-10-14 15:01 | disposition home or self-care (01) ==
LOC: SC.PAINP 14:08
PROVIDERS: PCP Family Medicine; Visit Provider Anesthesiology Pain Medicine
DX: M46.1 Sacroiliitis, not elsewhere classified (principal); M54.50 Low back pain, unspecified; M25.559 Pain in unspecified hip; G89.29 Other chronic pain; I10 Essential (primary) hypertension; J44.9 Chronic obstructive pulmonary disease, unspecified; E11.9 Type 2 diabetes mellitus without complications; E03.9 Hypothyroidism, unspecified; Z87.891 Personal history of nicotine dependence
CPT/HCPCS: 27096; G0260; J1040; Q9966

== ENCOUNTER → 2021-10-25 10:23 | Outpatient (CLI) | payer MEDICARE, SELFPAY ==
[2021-10-25 11:15] VITALS: PULSE 82; PULSE 84
== END ==
PROVIDERS: PCP Family Medicine; Visit Provider Specialist
DX: J44.9 Chronic obstructive pulmonary disease, unspecified (principal)
CPT/HCPCS: 94060; 94618; 94640; 94727; 94729

== ENCOUNTER → 2022-02-22 09:35 | Outpatient (CLI) | payer MEDICARE, SELFPAY ==
--- NOTE | 2022-02-22 09:37 | XR_ITS ---
FINAL REPORT TECHNIQUE: Bone mineral density was calculated of the lumbar spine, right forearm and left hip. CLINICAL HISTORY: post menopausal FINDINGS: DEXA BONE DENSITY AXIAL SKELETON Using L1-4, the bone mineral density of the spine is 0.809 g/cm2, corresponding to T-score of -2.2. Classified as osteopenia. Using the left hip, the bone mineral density of the femoral neck is 0.809 g/cm2, corresponding to a T-score of -1.1. Classified as osteopenia. Using the right forearm, the bone mineral density of the distal 1/3 is 0.641 g/cm2, corresponding to a T-score of -0.9. Classified as normal. NOTE: T-score: Standard deviation compared with peak bone mass of young adult mean. *Following the recommendations of the International Society of Bone densitometry, classification of hip BMD is based on the lower of two T-scores; total hip or femoral neck. IMPRESSION: Diminished bone mineral density of the lumbar spine and left hip consistent with osteopenia. FRAX 10 year fracture risk is 9.3 % for major osteoporotic fracture. Reviewed, Interpreted and Dictated by Kei Zaidi III, MD Transcribed by Alba Oneill Authenticated and [facility]
== END ==
PROVIDERS: PCP Family Medicine; Visit Provider Nurse Practitioner
DX: Z78.0 Asymptomatic menopausal state (principal)
CPT/HCPCS: 77080

== ENCOUNTER → 2023-03-01 13:44 | Outpatient (CLI) | payer MEDICARE, SELFPAY ==
--- NOTE | 2023-03-01 13:45 | CT_ITS ---
FINAL REPORT CLINICAL HISTORY: reducible umbilical hernia COMPARISON: None FINDINGS: Axial CT images of the abdomen and pelvis were obtained without intravenous contrast. Coronal reformatted images were also obtained.This study was performed with techniques to keep radiation doses as low as reasonably achievable (ALARA). Individualized dose reduction techniques using automated exposure control or adjustment of mA and/or kV according to the patient's size were employed. Abdomen: There is a 6 mm left lower lobe nodule. There is no evidence of renal stone or hydronephrosis. The liver has a mildly lobulated contour which may represent cirrhosis. There are multiple gallstones in the gallbladder. The spleen and pancreas have an unremarkable, unenhanced appearance. No mass or adenopathy is seen. No inflammatory process is identified. Moderate vascular calcifications. There are postoperative changes in the anterior abdominal and pelvic wall. The mesh appears to be intact but with focal bulging of the abdominal wall in this region. Pelvis: The appendix is not identified. There are multiple sigmoid diverticula. Urinary bladder is unremarkable. Right hip arthroplasty is noted. IMPRESSION: 6 mm left lower lobe nodule. Recommend 6 to 12-month follow-up CT chest per Fleischner criteria. Postoperative changes of the anterior abdominal and pelvic wall with intact mesh but with focal bulging of the abdominal wall in this region. Reviewed, Interpreted and Dictated by Kei Zaidi III, MD Transcribed by Marilu Connor Authenticated and [facility]
--- NOTE | 2023-03-01 14:03 | XR_ITS ---
FINAL REPORT CLINICAL HISTORY: left hand/wrist pain after fall FINDINGS: Left hand Three views were obtained. There is no acute fracture or dislocation. There are mild degenerative changes. No soft tissue abnormality is identified. IMPRESSION: No acute process. Reviewed, Interpreted and Dictated by Kei Zaidi III, MD Transcribed by Payal Duong Authenticated and [facility]
--- NOTE | 2023-03-01 14:03 | XR_ITS ---
FINAL REPORT CLINICAL HISTORY: left hand/wrist pain after fall FINDINGS: Left wrist Three views were obtained. There is a nondisplaced fracture at the base of the radial styloid of uncertain age, may be acute or subacute. There is soft tissue calcification adjacent to the triquetrum of uncertain age. There are moderate to severe degenerative changes at the radial aspect of the wrist. IMPRESSION: Nondisplaced radial styloid fracture of uncertain age, may be acute or subacute. Soft tissue calcification adjacent to the triquetrum of uncertain age. Reviewed, Interpreted and Dictated by Kei Zaidi III, MD Transcribed by Payal Duong Authenticated and [facility]
== END ==
PROVIDERS: PCP Nurse Practitioner; Visit Provider Nurse Practitioner
DX: K42.9 Umbilical hernia without obstruction or gangrene (principal); M25.532 Pain in left wrist; M79.642 Pain in left hand; W19.XXXA Unspecified fall, initial encounter; Y92.009 Unspecified place in unspecified non-institutional (private) residence as the place of occurrence of the external cause
CPT/HCPCS: 73100; 73120; 74176

== ENCOUNTER 2023-03-06 13:20 | Outpatient (RCR) | payer MEDICARE, SELFPAY | END 2023-03-06 15:00 | disposition home or self-care (01) | LOC: OT 13:20 | PROVIDERS: Visit Provider Orthopaedic Surgery | DX: S52.515A Nondisplaced fracture of left radial styloid process, initial encounter for closed fracture (principal) | CPT/HCPCS: 97763 ==

== ENCOUNTER 2023-04-26 08:25 | Day surgery (SDC) | payer MEDICARE, SELFPAY ==
[2023-04-25 11:44] VITALS: BMI 40.6
[2023-04-26 08:50] VITALS: BP 143/75; PULSE 80; RESP 18; TEMP 36.2; O2SAT 97
[2023-04-26 09:10] LABS: POC Glucose,Bedside 156 (70-110)
[2023-04-26 09:28] VITALS: O2SAT 95
--- NOTE | 2023-04-26 09:42 | HMH.SCOPE ---
Procedure: Date: 04/26/23 Patient Date of :: 1940 Procedure Performed:: EGD & bougie dilation Indications:: Dysphagia, food sticking Performing Provider:: Kristan Oswald MD Referring Provider:: Carol Oswald APRN Sedation:: Propofol Procedure:: The gastroscope was gently passed through the incisoral orifice into the oral cavity and under direct visualization the esophagus was intubated. The endoscope was passed down the esophagus, through the stomach, and into the duodenum. Color, texture, mucosa, and anatomy of the esophagus, stomach, and duodenum were carefully examined with the scope. 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 Complications:: None Estimated blood obtained (mL): 0 Colonoscopy Component Colonoscopy Component Was a colonoscopy performed during today's procedure?: No
[2023-04-26 09:50] VITALS: BP 139/70; PULSE 100; RESP 18; TEMP 36.6; O2SAT 91
[2023-04-26 10:00] VITALS: BP 166/84; PULSE 98; RESP 18; O2SAT 92
[2023-04-26 10:10] VITALS: BP 147/76; PULSE 96; RESP 17; O2SAT 94
[2023-04-26 10:20] VITALS: BP 144/66; PULSE 89; RESP 17; TEMP 36.6; O2SAT 96
--- NOTE | 2023-04-26 13:18 | EXP.ANES.CKL ---
[facility] Disclaimer: The information contained in this section may have been updated after the patient was seen, as this information can be updated by other users. Medical History Cataract Cataract of right eye Dysphagia Fall at home Umbilical hernia Surgical History Hx of blepharoplasty Hx of hernia repair Family History Other Family history of cancer Family history of diabetes mellitus type II Family history of hypothyroidism Social History Smoking Status: Never smoker alcohol intake: never substance use type: denies use current occupational status: retired Travel in the last 8 weeks: Inside the [place] household members: none housing: other marital status: current occupational exposures/hazards: No caffeine: No [facility] Anesthesia Checklist Patient Identification Patient Identification: Arm Band and Family Structural Data Admitted From: Home Planned Operative Procedure/s: Egd. Esophogeal dilation. Consent for Planned Operative Procedure(s) Verified: Yes Verified Documents: Surgical Consent and History and Physical NPO Status Verified Time NPO: 00:00 Additional verifications Patient : No Anesthesia Reactions: No Hx Blood Transfusions: No Blood Transfusion Reaction: No Cephalosporin Allergy: No Previous Colonoscopy: No Airway Assessment Mallampati Score:: Class II C-Spine Mobility Assessed: Yes TMJ Mobility Assessed: Yes Dentition: Poor Dentition Neurological Assessment Level of Consciousness: Awake, Alert, Appropriate and Follows Commands Hx Seizures: No Numbness or tingling in extremities: No Anesthesia Plan Anesthesia Risk discussed: Yes ASA Class: II Anesthesia Type: MAC
== END 2023-04-26 10:20 | disposition home or self-care (01) ==
PROVIDERS: PCP Nurse Practitioner; Visit Provider Internal Medicine Gastroenterology
PROC: 0DJ08ZZ Inspection of Upper Intestinal Tract, Via Natural or Artificial Opening Endoscopic (ICD-10-PCS; CPT 43235; principal; 2023-04-26 09:30)
DX: K22.2 Esophageal obstruction (principal); E11.9 Type 2 diabetes mellitus without complications
CPT/HCPCS: 43248; 82962

== ENCOUNTER 2023-09-06 19:39 | Outpatient (CLI) | payer MEDICARE, SELFPAY ==
[2023-09-06 19:04] LABS: Basophils % 0.5 % (0.1-2.0); Eosinophils # 0.2 K/mm3 (0.0-0.4); Eosinophils % 2.1 % (0.1-12.0); Hematocrit 46.7 % (37.0-47.0); Hemoglobin 15.3 g/dL (12.2-16.2); Lymphocytes # 2.7 K/mm3 (0.7-4.5); Lymphocytes % 29.5 % (10-50); Mean Corpuscular HGB Conc 32.7 g/dL (31.8-35.4); Mean Corpuscular Hemoglobin 30.2 pg (27.0-31.2); Mean Corpuscular Volume 92.4 fl (81-99); Mean Platelet Volume 9.9 fl (7.4-10.4); Monocytes # 0.5 K/mm3 (0.1-1.0); Monocytes % 5.5 % (1.7-9.3); Neutrophils # 5.7 K/mm3 (1.8-7.8); Neutrophils % 62.4 % (37.0-80.0); Platelet Count 181 K/mm3 (142-424); Red Blood Count 5.05 M/mm3 (4.20-5.40); Red Cell Distribution Width 13.3 % (11.5-17.5); White Blood Count 9.1 K/mm3 (4.8-10.8)
[2023-09-06 19:19] LABS: Alanine Aminotransferase 27 U/L (12-78); Albumin Level 3.8 g/dl (3.5-5.0); Albumin/Globulin Ratio 1.5 (1.1-1.8); Alkaline Phosphatase 95 U/L (38-126); Anion Gap 12.2 mEq/L (5-15); Aspartate Amino Transferase 31 U/L (14-36); Bilirubin,Total 0.5 mg/dl (0.2-1.3); Blood Urea Nitrogen 16 mg/dl (7-17); Calcium 8.9 mg/dl (8.4-10.2); Carbon Dioxide 29 mmol/L (22.0-30.0); Chloride 99 mmol/L (98-107); Estimated Glomerular Filt Rate 81 ml/min (>60); GFR (African American) 97 ML/MIN (>60); Globulin 2.6 g/dL (1.3-3.2); Glucose 178 mg/dl (74-100); Potassium 4.2 mmoL/L (3.5-5.1); Sodium 136 mmol/L (136-145); Total Protein,Serum 6.4 g/dl (6.3-8.2); Uric Acid 5.6 mg/dl (2.5-6.2)
== END 2023-09-06 23:59 ==
LOC: LAB.DROPOF 19:39
PROVIDERS: PCP Nurse Practitioner; Visit Provider Nurse Practitioner
DX: M79.671 Pain in right foot (principal)
CPT/HCPCS: 80053; 84550; 85025

== ENCOUNTER 2023-09-06 19:44 | Outpatient (CLI) | payer MEDICARE, SELFPAY ==
--- NOTE | 2023-09-06 19:56 | XR_ITS ---
PROCEDURE INFORMATION: Exam: XR Right Foot Exam date and time: 09/06/2023 7:49 PM Age: 82 years old Clinical indication: Difficulty in walking; Additional info: Right plantar foot/heel pain TECHNIQUE: Imaging protocol: Radiologic exam of the right foot. Views: 1 or 2 views. COMPARISON: CR XR KNEE RT 3V 04/15/2021 12:42 PM FINDINGS: Bones/joints: Osseous alignment is normal. No acute fracture. Mild degenerative changes throughout the midfoot. Mild plantar calcaneal spurring. Bones appear mildly osteopenic. Soft tissues: Moderate dorsal soft tissue swelling of the foot. IMPRESSION: Soft tissue swelling of the foot without evidence of acute fracture are aggressive osseous changes. Mild degenerative changes and mild plantar calcaneal spurring noted
== END 2023-09-06 23:59 ==
LOC: RAD 19:47
PROVIDERS: PCP Nurse Practitioner; Visit Provider Nurse Practitioner
DX: M79.671 Pain in right foot (principal)
CPT/HCPCS: 73620; 80053; 84550; 85025

== ENCOUNTER 2023-12-05 18:37 | Outpatient (CLI) | payer MEDICARE, SELFPAY ==
[2023-12-05 19:00] LABS: Adenovirus,PCR Not Detected (NotDetected); Coronavirus 19, PCR Not Detected (NotDetected); Coronavirus 229E Not Detected (NotDetected); Coronavirus NL63 Not Detected (NotDetected); Coronavirus OC43 Not Detected (NotDetected); Coronovirus HKU1,PCR Not Detected (NotDetected); Human Metapneumovirus Not Detected (NotDetected); Influenza A, PCR Not Detected (NotDetected); Influenza AH1, 2009 Not Detected (NotDetected); Influenza AH1, PCR Not Detected (NotDetected); Influenza AH3,PCR Not Detected (NotDetected); Influenza B, PCR Not Detected (NotDetected); Parainfluenza 1, PCR Not Detected (NotDetected); Parainfluenza 2, PCR Not Detected (NotDetected); Parainfluenza 3, PCR Not Detected (NotDetected); Parainfluenza 4, PCR Not Detected (NotDetected); Respiratory Syncytial Virus Not Detected (NotDetected); Rhinovirus/Enterovirus Not Detected (NotDetected)
== END 2023-12-05 23:59 | disposition home or self-care (01) ==
LOC: LAB.DROPOF 18:38
PROVIDERS: PCP Nurse Practitioner; Visit Provider Nurse Practitioner
DX: R06.89 Other abnormalities of breathing (principal); J44.1 Chronic obstructive pulmonary disease with (acute) exacerbation; R19.7 Diarrhea, unspecified; R06.02 Shortness of breath; Z79.899 Other long term (current) drug therapy
CPT/HCPCS: 87632; 87635

== ENCOUNTER 2023-12-14 12:46 | Outpatient (CLI) | payer MEDICARE, SELFPAY ==
--- NOTE | 2023-12-14 12:46 | CA_ITS ---
FINAL REPORT TECHNIQUE: Color Doppler, duplex Doppler and ham scale sonography of the bilateral neck arterial vasculature was performed. Velocities were measured in the carotid arteries. Stenosis evaluation based on the validated velocity criteria. CLINICAL HISTORY: dizziness, COPD, SOB, GARCIA, Obesity, CORDELIA COMPARISON: None FINDINGS: The peak systolic velocity of the right common carotid artery is 104 cm/s. The peak systolic velocity of the right internal carotid artery is 97 cm/s and end diastolic velocity 15 cm/s. The ICA/CCA ratio is 0.94. A minimal amount of plaque is present. The right external carotid artery is patent. The right vertebral artery is patent with antegrade flow. The peak systolic velocity of the left common carotid artery is 109 cm/s. The peak systolic velocity of the left internal carotid artery is 76 cm/s and end diastolic velocity 21 cm/s. The ICA/CCA ratio is 0.75. A minimal amount of plaque is present. The left external carotid artery is patent.The left vertebral artery is patent with antegrade flow. IMPRESSION: Less than 50% bilateral carotid stenoses. Bilateral patent vertebral arteries with antegrade flow. If indicated, CTA or MRA could further evaluate. Reviewed, Interpreted and Dictated by Donavan Mcdonnell MD Transcribed by Marilu Connor Authenticated and [facility]
== END 2023-12-14 23:59 | disposition home or self-care (01) ==
LOC: RT 12:46
PROVIDERS: PCP Nurse Practitioner; Visit Provider Nurse Practitioner
DX: R06.02 Shortness of breath (principal); R42 Dizziness and giddiness; R68.89 Other general symptoms and signs
CPT/HCPCS: 93306; 93880